=== PATIENT | female | born 1985 | race African-American/Black ===

== ENCOUNTER 2017-05-29 07:48 | Emergency (ER) | payer OTHER ==
--- NOTE | 2017-05-29 08:56 | RAD ---
TWO VIEWS CHEST: Date: 05-29-17 Comparison: 01-11-15 History: Cough, congestion, and sore throat. FINDINGS: There is minimal scoliotic curvature of the thoracic spine. There is no pneumothorax, pleural fluid, focal consolidation or alveolar edema. IMPRESSION: No acute findings. POS: [facility]
== END 2017-05-29 08:55 | disposition home or self-care (01) ==
LOC: ERS 07:48
DX: J40 Bronchitis, not specified as acute or chronic (principal); F17.210 Nicotine dependence, cigarettes, uncomplicated
CPT/HCPCS: 71020; 87081; 87430

== ENCOUNTER 2017-09-25 11:58 | Emergency (ER) | payer OTHER | END 2017-09-25 13:04 | disposition home or self-care (01) | LOC: ERS 11:58 | DX: K08.89 Other specified disorders of teeth and supporting structures (principal); F17.210 Nicotine dependence, cigarettes, uncomplicated | CPT/HCPCS: 99282 ==

== ENCOUNTER 2017-11-14 20:43 | Emergency (ER) | payer OTHER ==
[2017-11-14] MEDS ORDERED: Ketorolac Tromethamine 30 MG/ML VIAL ONE (21:35)
== END 2017-11-14 22:04 | disposition home or self-care (01) ==
LOC: ERS 20:43
DX: S02.5XXA Fracture of tooth (traumatic), initial encounter for closed fracture (principal); K02.9 Dental caries, unspecified; F17.210 Nicotine dependence, cigarettes, uncomplicated; X58.XXXA Exposure to other specified factors, initial encounter
CPT/HCPCS: 96372; J1885

== ENCOUNTER 2018-11-09 02:56 | Emergency (ER) | payer OTHER ==
[2018-11-09 03:31] LABS: #Basophils 0.1 thou/uL (0.0-0.2); #Eosinphils 0.1 thou/uL (0.0-0.7); #Monocytes 0.6 thou/uL (0.11-0.59); #Neutrophils 5.1 thou/uL (1.40-6.50); %Basophils 1.1 % (0.0-1.0); %Eosinophils 1.1 % (0.0-10.0); %Monocytes 6.1 % (0.0-10.0); %Neutrophils 51.6 % (42.0-75.0); Hemoglobin 12.8 g/dL (12.0-16.0); Mean Corpuscular HGB CONC 31.9 g/dL (32.0-36.0); Mean Corpuscular Hemoglobin 28.1 pg (27.0-31.0); Mean Corpuscular Volume 88.3 fL (78.0-98.0); Mean Platelet Volume 7.5 fL (7.4-10.4); Platelet Count 347 thou/uL (130-400); RBC Distribution Width 12.9 % (11.5-14.5); Red Blood Cell (RBC) Count 4.55 mill/uL (4.20-5.40); White Blood Cell (WBC) Count 9.9 thou/uL (4.8-10.8)
[2018-11-09 03:32] LABS: Bilirubin Negative (Negative); Blood, Urine Negative (Negative); Clarity CLEAR (Clear); Glucose, Urine (Dipstick) Negative (Negative); Leukocyte Negative (Negative); Nitrite Negative (Negative); Protein, Urine (Dipstick) Negative (Neg-Trace); Specific Gravity, Urine 1.004 (1.002-1.036); Urobilinogen 0.2 mg/dL (0.2-1.0)
[2018-11-09 03:33] LABS: Pregnancy Test - Urine (BHCG) Negative (Negative); Pregu Control Background? CLEAR/WHITE (CLR/WHITE); Pregu Control Bar Appear? YES (CONTROL BAR); Specific Gravity 1.004 (1.002-1.036)
[2018-11-09 03:43] LABS: Amphetamine Not Detected (NotDetected); Barbiturates Screen Not Detected (NotDetected); Benzodiazepine Screen Not Detected (NotDetected); Cocaine Metabolite Screen Not Detected (NotDetected); Medtox Control Line Valid? VALID (VALID); Medtox Reader # READER 4; Methadone Not Detected (NotDetected); Methamphetamine Not Detected (NotDetected); Opiate Screen Not Detected (NotDetected); Oxycodone Screen Not Detected (NotDetected); Phencyclidine (PCP) Not Detected (NotDetected); THC/Cannabinoid Screen Not Detected (NotDetected); Tricyclic Screen Not Detected (NotDetected)
[2018-11-09 03:50] LABS: ALT (SGPT) 55 U/L (8-55); AST (SGOT) 24 U/L (5-34); Albumin 3.9 g/dL (3.5-5.0); Alcohol 183 mg/dL (Less than 10); Alkaline Phosphatase 99 U/L (40-150); Anion Gap 15 mmol/L (10-20); BUN (Urea Nitrogen) 6 mg/dL (7.0-18.7); Bilirubin, Total 0.3 mg/dL (0.2-1.2); CK (CPK) 132 U/L (29-168); Calc. Creatinine Clearance 0 mL/min (70-130); Calcium 9.7 mg/dL (7.8-10.44); Carbon Dioxide 24 mmol/L (22-29); Chloride 106 mmol/L (98-107); Estimated GFR-MDRD 88; Glucose 173 mg/dL (70-105); Potassium 3.6 mmol/L (3.5-5.1); Protein, Total 7.9 g/dL (6.0-8.3); Salicylate Less than 8.0 mg/dL (15.0-30.0); Sodium 141 mmol/L (136-145)
[2018-11-09 06:17] LABS: Alcohol 128 mg/dL (Less than 10)
== END 2018-11-09 14:10 | disposition home or self-care (01) ==
LOC: ERS 02:56
DX: F32.9 Major depressive disorder, single episode, unspecified (principal); F10.129 Alcohol abuse with intoxication, unspecified; Y90.6 Blood alcohol level of 120-199 mg/100 ml; F17.210 Nicotine dependence, cigarettes, uncomplicated
CPT/HCPCS: 36415; 80053; 80306; 80307; 81003; 81025; 82550; 84443; 85025; 93005; 96360

== ENCOUNTER 2019-02-03 08:50 | Emergency (ER) | payer OTHER ==
[2019-02-03 09:43] LABS: Bilirubin Negative (Negative); Blood, Urine 2+ (Negative); Clarity Turbid (Clear); Glucose, Urine (Dipstick) Normal (Negative); Leukocyte 75 Leu/uL (Negative); Mucous/LPF Rare LPF (<2+); Nitrite Negative (Negative); Protein, Urine (Dipstick) 30 mg/dL (Neg-Trace); Squamous Epithelial 21-50 HPF (0-3)
[2019-02-03 09:45] LABS: Bacteria/HPF 1+ HPF (None Seen)
[2019-02-03 09:46] LABS: Pregnancy Test - Urine (BHCG) Negative (Negative); Pregu Control Background? CLEAR/WHITE (CLR/WHITE); Pregu Control Bar Appear? YES (CONTROL BAR); Specific Gravity 1.029 (1.002-1.036)
--- NOTE | 2019-02-03 11:01 | ULT ---
US Pelvic Transvag History: Pelvic pain Comparison: Pelvic ultrasound 2002 Findings: Real-time grayscale, color, and spectral analysis of the pelvis was performed transabdomina l and transvaginal approach. History a mass in the vaginal canal which is hypoechoic and heterogeneous. Uterus measures 9 x 5 x 5 cm. Left ovary measures 2.5 x 3 x 2.1 cm with adequate vascular flow. Right ovary measures 3.2 x 2.6 x 3 cm with a cyst. Flow unable to be obtained due to habitus. Impression: Vaginal canal heterogeneous mass/abscess. Direct visualization recommended.
[2019-02-03] MEDS ORDERED: Morphine 4 MG/ML VIAL ONE (11:05)
[2019-02-03] MEDS ORDERED: Ondansetron PF 4 MG/2 ML Vial ONE (11:05)
--- NOTE | 2019-02-03 12:46 | CT ---
EXAM: CT abdomen and pelvis with IV contrast PROVIDED CLINICAL HISTORY: Vaginal pain COMPARISON: None FINDINGS: The visualized lung bases are free of significant opacity. The solid abdominal organs demonstrate an unremarkable CT appearance. There is no bowel dilatation, inflammatory fat stranding, free fluid or free air apparent. There is n o evidence for appendicitis. 3.2 cm right adnexal cyst, nonspecific. Prominent by number but not pathologically enlarged bilateral inguinal lymph nodes. There is a 3.6 cm cystic mass associated with the left labial region, demonstrating peripheral contra st enhancement in a somewhat complex internal enhancement pattern remaining primarily fluid density internally. The regional major vascular structures appear unremarkable. The osseous structures demonstrate no con cerning lytic or blastic lesions. IMPRESSION: 1. Findings compatible with Bartholin's gland cyst on the left. Given the enhancement pattern, associ ated inflammation or infection should be considered. 2. Nonspecific 3.2 cm right adnexal cyst.
[2019-02-03] MEDS ORDERED: Azithromycin 250 MG TAB ONE (13:30)
[2019-02-03] MEDS ORDERED: cefTRIAXone\\ROCEPHIN 250 MG VIAL ONE (13:51)
[2019-02-03] MEDS ORDERED: Lidocaine 1% PF 5 ML VIAL ONE (13:51)
[2019-02-03] MEDS ORDERED: ISOVUE-370 76%-LOCM 1 ML ONE (16:27)
[2019-02-04 20:23] LABS: Chlamydia by PCR Not Detected (NotDetected); GC by PCR Not Detected (NotDetected)
== END 2019-02-03 14:19 | disposition home or self-care (01) ==
LOC: ERS 08:50
DX: N88.8 Other specified noninflammatory disorders of cervix uteri (principal); A59.01 Trichomonal vulvovaginitis; F17.210 Nicotine dependence, cigarettes, uncomplicated
CPT/HCPCS: 74177; 76856; 81003; 81015; 81025; 87480; 87491; 87510; 87591; 87660; 96372; 96374; 96375; J0696; J2001; J2270; J2405; Q9966

== ENCOUNTER 2019-04-08 09:09 | Emergency (ER) | payer OTHER ==
[2019-04-08 10:46] LABS: #Eosinphils 0.4 thou/uL (0.0-0.7); #Lymphocytes 3.2 thou/uL (1.20-3.40); #Monocytes 0.6 thou/uL (0.11-0.59); #Neutrophils 6.6 thou/uL (1.40-6.50); %Basophils 0.4 % (0.0-1.0); %Eosinophils 3.7 % (0.0-10.0); %Lymphocytes 29.3 % (21.0-51.0); %Monocytes 5.3 % (0.0-10.0); %Neutrophils 61.3 % (42.0-75.0); Hemoglobin 11.7 g/dL (12.0-16.0); Mean Corpuscular HGB CONC 33.1 g/dL (32.0-36.0); Mean Corpuscular Hemoglobin 28.5 pg (27.0-31.0); Mean Platelet Volume 7.6 fL (7.4-10.4); Platelet Count 328 thou/uL (130-400); RBC Distribution Width 12.9 % (11.5-14.5); Red Blood Cell (RBC) Count 4.12 mill/uL (4.20-5.40); White Blood Cell (WBC) Count 10.8 thou/uL (4.8-10.8)
[2019-04-08] MEDS ORDERED: Acetaminophen 500 MG TAB ONE (11:08)
[2019-04-08 11:21] LABS: Bilirubin Negative (Negative); Blood, Urine Negative (Negative); Clarity Clear (Clear); Glucose, Urine (Dipstick) Normal (Negative); Leukocyte Negative Leu/uL (Negative); Nitrite Negative (Negative); Protein, Urine (Dipstick) Negative (Neg-Trace); Urobilinogen Normal mg/dL (Less than 2)
[2019-04-10 00:03] LABS: Chlamydia by PCR Not Detected (NotDetected); GC by PCR Not Detected (NotDetected)
== END 2019-04-08 12:15 | disposition home or self-care (01) ==
LOC: ERS 09:09
DX: A59.01 Trichomonal vulvovaginitis (principal); F17.210 Nicotine dependence, cigarettes, uncomplicated
CPT/HCPCS: 36415; 36416; 81003; 85025; 87077; 87086; 87480; 87491; 87510; 87591; 87660; 99284

== ENCOUNTER 2019-08-06 18:48 | Emergency (ER) | payer OTHER ==
--- NOTE | 2019-08-06 20:40 | RAD ---
EXAM: Chest Two Views 08/06/2019 8:38 PM HISTORY: Cough and congestion COMPARISON: May 29, 2017 FINDINGS: Lungs: No acute airspace consolidation. Heart: Normal in size and contour. Pulmonary vessels: Normal. Costophrenic angles: Clear. Pneumothorax: None. Osseous structures:Intact. Additional findings: None. IMPRESSION: No significant acute intrathoracic disease.
== END 2019-08-06 22:40 | disposition home or self-care (01) ==
LOC: ERS 18:48
DX: J20.9 Acute bronchitis, unspecified (principal); F17.210 Nicotine dependence, cigarettes, uncomplicated
CPT/HCPCS: 71046; 94640; J7620

== ENCOUNTER 2020-06-28 02:02 | Inpatient (IN) | payer OTHER ==
[2020-06-28] MEDS ORDERED: Ketorolac Tromethamine 30 MG/ML VIAL ONE (02:26)
[2020-06-28 02:45] LABS: #Basophils 0.1 thou/uL (0.0-0.2); #Eosinphils 0.4 thou/uL (0.0-0.7); #Lymphocytes 3.9 thou/uL (1.20-3.40); #Monocytes 0.6 thou/uL (0.11-0.59); #Neutrophils 4.5 thou/uL (1.40-6.50); %Basophils 1.3 % (0.0-1.0); %Eosinophils 3.7 % (0.0-10.0); %Lymphocytes 41.3 % (21.0-51.0); %Neutrophils 47.6 % (42.0-75.0); Hemoglobin 13.1 g/dL (12.0-16.0); Mean Corpuscular HGB CONC 32.8 g/dL (32.0-36.0); Mean Corpuscular Volume 88.5 fL (78.0-98.0); Mean Platelet Volume 8.2 fL (7.4-10.4); Platelet Count 319 thou/uL (130-400); RBC Distribution Width 11.9 % (11.5-14.5); Red Blood Cell (RBC) Count 4.51 mill/uL (4.20-5.40); White Blood Cell (WBC) Count 9.5 thou/uL (4.8-10.8)
[2020-06-28 02:50] LABS: BHCG - Serum Negative (NEGATIVE); Pregs Control Background? CLEAR/WHITE (CLR/WHITE); Pregs Control Bar Appear? YES (CONTROL BAR)
[2020-06-28 03:06] LABS: ALT (SGPT) 36 U/L (8-55); AST (SGOT) 22 U/L (5-34); Albumin 3.8 g/dL (3.5-5.0); Alkaline Phosphatase 94 U/L (40-110); Anion Gap 18 mmol/L (10-20); BUN (Urea Nitrogen) 7 mg/dL (7.0-18.7); Bilirubin, Total 0.3 mg/dL (0.2-1.2); Calc. Creatinine Clearance 0 mL/min (70-130); Calcium 8.8 mg/dL (7.8-10.44); Carbon Dioxide 20 mmol/L (22-29); Chloride 100 mmol/L (98-107); Globulin 4.3 g/dL (2.4-3.5); Glucose 285 mg/dL (70-105); Protein, Total 8.1 g/dL (6.0-8.3); Sodium 134 mmol/L (136-145)
[2020-06-28] MEDS ORDERED: Morphine 4 MG/ML VIAL ONE (04:08)
[2020-06-28] MEDS ORDERED: Ondansetron PF 4 MG/2 ML Vial ONE (04:08)
[2020-06-28] MEDS ORDERED: Enoxaparin Sodium 80 MG/0.8 ML SYRINGE ONE (04:22)
[2020-06-28] MEDS ORDERED: Enoxaparin Sodium 40 MG/0.4 ML SYRINGE ONE (04:22)
--- NOTE | 2020-06-28 04:39 | PDOC.HHP ---
Hospitalist HPI - History of Present Illness Dyspnea, chest pain History of Present Illness: This is a 34-year-old male patient with a history of hypertension, obesity who presents with chest pain and dyspnea since she woke up a day ago. Pain in the central chest region with pleuritic and associated with dyspnea. No radiation and no apparent aggravating relieving factors. She does not know of any history of diabetes however she states she has hypertension however has not been treated. She is obese and also smokes 2 packs of cigarettes per day for the past 15 years. She notes having had similar type of chest pain couple of years ago however no diagnosis was made. With worsening pain she presented to the ED by EMS. At presentation her blood pressure is 135/95, pulse 107, respiratory rate 25, saturation 97 on room air. Labs showed sodium 134, glucose 285 CBC essentially within normal limits however D-dimer was markedly elevated at 11.86. Patient notes that she had not been exposed to anybody with Covid. Covid test is pending. CTA of the chest was limited limited in his ability to diagnose a PE however could rule out a large pulmonary embolism. The lungs were clear Given patient's vitals chest pain and history, concern still remain for PE or ACSwas started on Lovenox decision was made to admit for observation. Chest pain pain improved with morphine and Toradol Hospitalist team was consulted for admission. Hospitalist ROS - Review of Systems Constitutional: denies: fever, sweats, weakness Respiratory: reports: shortness of breath, SOB with excertion, pleuritic pain. denies: cough, hemoptysis Cardiovascular: reports: chest pain, palpitations. denies: orthopnea, paroxysmal noc. dyspnea, edema Gastrointestinal: denies: nausea, vomiting, abdominal pain, diarrhea Genitourinary: denies: dysuria, frequency, incontinence, hematuria Musculoskeletal: denies: neck pain, shoulder pain, arm pain, back pain, hand pain Neurological: denies: weakness, numbness, incoordination, change in speech Hospitalist Results - Labs Result Diagrams: 06/28/20 02:29 06/28/20 02:29 Lab results: WBC 9.5 thou/uL (4.8-10.8) 06/28/20 02: Hgb 13.1 g/dL (12.0-16.0) 06/28/20 02:29 Hct 39.9 % (36.0-47.0) 06/28/20 02:29 MCV 88.5 fL (78.0-98.0) 06/28/20 02:29 Plt Count 319 thou/uL (130-400) 06/28/20 02:29 Neutrophils % 47.6 % (42.0-75.0) 06/28/20 02:29 Sodium 134 mmol/L (136-145) L 06/28/20 02:29 Potassium 4.0 mmol/L (3.5-5.1) 06/28/20 02:29 Chloride 100 mmol/L (98-107) 06/28/20 02:29 Carbon Dioxide 20 mmol/L (22-29) L 06/28/20 02:29 BUN 7 mg/dL (7.0-18.7) 06/28/20 02:29 Creatinine 1.00 mg/dL (0.6-1.1) 06/28/20 02:29 Glucose 285 mg/dL (70-105) H 06/28/20 02:29 Calcium 8.8 mg/dL (7.8-10.44) 06/28/20 02:29 Total Bilirubin 0.3 mg/dL (0.2-1.2) 06/28/20 02:29 AST 22 U/L (5-34) 06/28/20 02:29 ALT 36 U/L (8-55) 06/28/20 02:29 Alkaline Phosphatase 94 U/L (40-110) 06/28/20 02:29 Troponin I 0.021 ng/mL (< 0.028) 06/28/20 02:29 Serum Total Protein 8.1 g/dL (6.0-8.3) 06/28/20 02:29 Albumin 3.8 g/dL (3.5-5.0) 06/28/20 02:29 Hospitalist H&P A/P - Plan Plan: This is a 34-year-old female patient with a history of obesity, tobacco abuse, hypertension who presents with a day history of worsening pleuritic chest pain. She is tachypneic and tachycardic with significantly elevated D-dimer concerning for PE however CTA has been inconclusive. Also possible DVT of ACS. She will be admitted for observation and cardiac/PE rule out. Chest pain Possibilities include PE, ACS given tachypnea and tachycardia. Patient is obese as [id number] smoking history and likely hypertensive. Troponin initial was in normal limitswe will trend CTA nonconclusive for PE however we will start her on Lovenox Consider VQ scan in a.m.may be able to do the perfusion aspect. Follow-up Covid test Consider cardiology evaluation. Elevated D-dimer Concerns for PE Covered on Lovenox for now Obesity Hyperglycemia Glucose elevated at 285 We will check A1c CODE STATUSfull code [place] prophylaxistherapeutic on Lovenox
[2020-06-28] MEDS ORDERED: Nitroglycerin 0.4 MG TAB (25 Tab Bottle) SL PRN (05:21)
[2020-06-28] MEDS ORDERED: Aspirin 325 MG TAB PO SCH (05:30)
[2020-06-28 06:04] LABS: Hemoglobin A1c 9.5 % (4.0-6.0)
[2020-06-28 06:05] LABS: Troponin I Less than 0.010 ng/mL (< 0.028)
--- NOTE | 2020-06-28 08:25 | CT ---
PRELIMINARY REPORT/[facility]/EMERGENCY AFTER HOURS PROCEDURE: EXAM: CTA Chest with Intravenous Contrast CLINICAL HISTORY: Patient is a 39 yo F who started having some left leg pain yesterday and woke up th is morning having trouble walking. She has not been able to walk all day and her left leg is sensitiv e to touch. TECHNIQUE: Axial CTA images of the chest with intravenous contrast. Three-dimensional MIP/volume rend ered reformations were performed. CONTRAST: With; 100ML ISOVUE 370 COMPARISON: None provided. FINDINGS: PULMONARY ARTERIES This examination is limited for evaluation of a PE due to the suboptimal enhanceme nt. There is no large PE. AORTA No thoracic aortic aneurysm or dissection. LUNGS The lungs are clear. No pulmonary mass. No focal airspace consolidation. PLEURAL SPACES No pleural effusion. No pneumothorax. HEART AND MEDIASTINUM No cardiomegaly. No significant pericardial effusion. LYMPH NODES No lymphadenopathy. BONES No focal osseous abnormality or acute fracture. CHEST WALL AND UPPER ABDOMEN Images through the upper abdomen are unremarkable. The chest wall is unr emarkable. IMPRESSION: This examination is limited for evaluation of a PE due to the suboptimal enhancement. The re is no large PE. ELECTRONICALLY SIGNED BY: Dylan Allison MD Jun 28, 2020 3:57:58 AM ADULT DAYCARE COORDINATOR FINAL REPORT CT ANGIO OF CHEST PERFORMED WITH INTRAVENOUS CONTRAST ENHANCEMENT WITH 3D RECONSTRUCTIONS: HISTORY: Left leg swelling, shortness of breath. Substernal chest pain. FINDINGS: There is some subsegmental atelectatic change in the lung bases. No infiltrative lung process. No d efinite significant mediastinal adenopathy. There are some subcarinal nodes located in the azygoesop hageal recess which are mildly prominent. Also some small prevascular nodes and small hilar nodes. Changes may be related to reactive nodes. Very nonspecific in appearance. Thoracic aorta is normal in caliber. There is poor pulmonary artery opacification. I see no large c entral pulmonary embolus. Visualized liver parenchyma shows no focal findings. IMPRESSION: 1. Very limited examination for evaluation of pulmonary embolus. I see no evidence of any large praveen tral pulmonary emboli. 2. Slightly prominent mediastinal and hilar lymph nodes, probably reactive in nature. 3. This report is in agreement with the temporary report issued by [facility]. POS: [facility]
--- NOTE | 2020-06-28 08:40 | RAD ---
PORTABLE CHEST: INDICATION: Chest pain. FINDINGS: No definite infiltrate. See accompanying CT chest for better characterization. IMPRESSION: No acute process identified. POS: [facility]
[2020-06-28 09:11] LABS: SARS-CoV-2 MS2 Positive; SARS-CoV-2 N Gene Negative; SARS-CoV-2 S Gene Negative; SARS-CoV-2 by NAA Not Detected (NotDetected); SARS-CoV-2 orf1ab Negative
[2020-06-28 09:41] LABS: Troponin I 0.014 ng/mL (< 0.028)
[2020-06-28] MEDS ORDERED: Acetaminophen 325 MG TAB PO PRN (09:42)
[2020-06-28] MEDS ORDERED: Ondansetron PF 4 MG/2 ML Vial IVP PRN (09:42)
[2020-06-28] MEDS ORDERED: Ondansetron ODT 4 MG TAB PO PRN (09:42)
--- NOTE | 2020-06-28 11:20 | NM ---
EXAM: NM Lung Perfusion Paticulate PROVIDED CLINICAL HISTORY: Chest pain COMPARISON: CT chest 06/28/2020 FINDINGS: 5.9 mCi technetium 99m labeled MAA was given intravenously. Perfusion images demonstrate normal, homo geneous distribution of radiopharmaceutical throughout both lungs, without evidence for a segmental peripheral wedge-shaped area of perfusion deficiency to suggest pulmonary embolus. IMPRESSION: No scintigraphic evidence for pulmonary embolus.
[2020-06-28] MEDS ORDERED: Iopamidol 370 76% 100 ML VIAL ONE (12:10)
[2020-06-28] MEDS ORDERED: Dextrose 50% Abboject 50 ML SYRINGE SLOW IVP PRN (14:01)
[2020-06-28] MEDS ORDERED: Dextrose 5% in Water 1,000 ML IV PRN (14:01)
[2020-06-28] MEDS ORDERED: HumaLOG 300 UNITS/3 ML VIAL SC PRN (14:01)
--- NOTE | 2020-06-28 14:26 | PDOC.HOSPP ---
- Subjective Encounter Date: 06/28/20 Encounter Time: 14:24 Subjective: Patient seen and examined. No new complaints. No overnight events. She still endorses right sided chest pain, unchanged since admission with mild dyspnea. Denies heart palpitations, light headedness, pain or swelling to lower extremities. We discussed results of VQ scan, CTA, DD and HA1C. Discussed newly diagnosed diabetes type II in detail. No further questions. - Objective Vital Signs & Weight: Weight Weight 263 lb 7.238 oz Result Diagrams: 06/28/20 02:29 06/28/20 02:29 Hospitalist ROS - Review of Systems Constitutional: denies: fever, chills Respiratory: reports: shortness of breath (mild). denies: cough, hemoptysis Cardiovascular: reports: chest pain (right sided, constant worse with deep inhalation). denies: palpitations, edema, light headedness Gastrointestinal: denies: nausea, vomiting, abdominal pain, diarrhea Genitourinary: denies: dysuria, hematuria All other systems reviewed; all pertinent +/- noted in HPI/Subj - Exam General Appearance: NAD, awake alert. negative: ill appearing General - other findings: uncomfortable Eye: anicteric sclera Heart: RRR, no murmur, no gallops, no rubs, normal peripheral pulses Respiratory: CTAB, no wheezes, no rales, no ronchi, normal chest expansion Gastrointestinal: soft, non-tender, normal bowel sounds, no rigidity Gastrointestinal - other findings: respiratory arrest with deep inhalation Extremities: no cyanosis, no edema Skin: no rashes Neurological: no focal deficits Psychiatric: normal affect, A&O x 3 Hosp A/P (1) Chest pain Code(s): R07.9 - CHEST PAIN, UNSPECIFIED Status: Acute (2) Pulmonary embolism Code(s): I26.99 - OTHER PULMONARY EMBOLISM WITHOUT ACUTE COR PULMONALE Status: Acute (3) Diabetes type 2, uncontrolled Code(s): E11.65 - TYPE 2 DIABETES MELLITUS WITH HYPERGLYCEMIA Status: Acute (4) Obesity Code(s): E66.9 - OBESITY, UNSPECIFIED Status: Acute - Plan 34/F with PMH HTN and obesity presents for dyspnea. The patient is admitted to telemetry floor, observation status. Expected length of stay less than 2 midnights. #Chest pain Constant, unable to reproduce on examination. Troponins x3 flat, does not follow physiologic pattern ACS. Continue full dose aspirin. We will check fasting lipid profile in a.m. #Pulmonary embolism Suspected. CTA chest very limited exam, no evidence of large central pulmonary emboli. Nuc med lung perfusion scan no evidence of pulmonary embolism. Order venous Doppler. Continue Lovenox 100 mg twice daily. Add morphine for analgesia. If venous Doppler negative, will consult pulmonology in a.m. #Diabetes type 2 uncontrolled Newly diagnosed. Hemoglobin A1c 9.5. Extensive education. Consult dietary. Add mild ISS. Accu-Cheks AC at bedtime. #Obesity, morbid BMI 42.5. Dietary consulted. Continue Lovenox for DVT prophylaxis. No GI prophylaxis. CODE STATUS is full code. Discussed this case with Dr. Cartagena, attending physician.
[2020-06-28] MEDS ORDERED: Morphine 4 MG/ML VIAL SLOW IVP PRN (14:53)
[2020-06-28] MEDS ORDERED: Enoxaparin Sodium 100 MG/ML SYRINGE ONE (16:08)
[2020-06-28] MEDS ORDERED: Aspirin 325 MG TAB ONE (16:08)
[2020-06-28] MEDS ORDERED: Nitroglycerin 0.4 MG TAB 1 EACH ONE (16:08)
[2020-06-28] MEDS: Enoxaparin Sodium 100 MG/ML SYRINGE SC SCH (16:49)
--- NOTE | 2020-06-28 17:01 | ULT ---
Venous duplex sonogram bilateral lower extremity HISTORY: Bilateral leg pain and edema. FINDINGS: Each common femoral vein and greater saphenous junction were evaluated along with each femo ral, deep femoral, popliteal, and posterior tibial vein. There is good color and spectral Doppler flow, compression, and augmentation. IMPRESSION : Normal exam.
[2020-06-28] MEDS ORDERED: HumaLOG 300 UNITS/3 ML VIAL ONE (18:24)
[2020-06-28] MEDS: HumaLOG 300 UNITS/3 ML VIAL SC PRN (18:28)
[2020-06-28] MEDS ORDERED: Enoxaparin Sodium 40 MG/0.4 ML SYRINGE SC SCH (21:00)
[2020-06-28 21:50] VITALS: BMI 43.8
[2020-06-29 04:01] LABS: #Basophils 0.1 thou/uL (0.0-0.2); #Eosinphils 0.2 thou/uL (0.0-0.7); #Monocytes 0.5 thou/uL (0.11-0.59); #Neutrophils 3.6 thou/uL (1.40-6.50); %Basophils 1.2 % (0.0-1.0); %Eosinophils 2.9 % (0.0-10.0); %Lymphocytes 47.3 % (21.0-51.0); %Monocytes 6.1 % (0.0-10.0); %Neutrophils 42.5 % (42.0-75.0); Mean Corpuscular Hemoglobin 28.2 pg (27.0-31.0); Mean Corpuscular Volume 88.2 fL (78.0-98.0); Mean Platelet Volume 7.9 fL (7.4-10.4); Platelet Count 281 thou/uL (130-400); RBC Distribution Width 11.9 % (11.5-14.5); Red Blood Cell (RBC) Count 4.26 mill/uL (4.20-5.40); White Blood Cell (WBC) Count 8.3 thou/uL (4.8-10.8)
[2020-06-29 04:18] LABS: Anion Gap 12 mmol/L (10-20); BUN (Urea Nitrogen) 8 mg/dL (7.0-18.7); Calc. Creatinine Clearance 202 mL/min (70-130); Calcium 8.6 mg/dL (7.8-10.44); Carbon Dioxide 25 mmol/L (22-29); Cardiac Risk 4.1 (Less than 4.5); Chloride 102 mmol/L (98-107); Cholesterol 107 mg/dl (< 200 Desired); Glucose 168 mg/dL (70-105); HDL Cholesterol 26 mg/dL (>60 Neg Risk); LDL Cholesterol, Calculated 49 mg/dL; Sodium 135 mmol/L (136-145); Triglycerides 159 mg/dL (Less than 150)
[2020-06-29] MEDS: Enoxaparin Sodium 100 MG/ML SYRINGE SC SCH (04:22)
[2020-06-29 07:51] VITALS: TEMP 98.4
[2020-06-29] MEDS ORDERED: Aspirin 325 mg Enteric Coated Tablet PO SCH (09:00)
[2020-06-29] MEDS ORDERED: FLU VACC QS2020-21(6MOS UP)/PF 60 MCG/0.5 ML SYRINGE IM ONE (09:00)
[2020-06-29 11:17] VITALS: BP 131/75
[2020-06-29] MEDS: HumaLOG 300 UNITS/3 ML VIAL SC PRN (11:19)
--- NOTE | 2020-06-29 12:24 | CON ---
DATE OF CONSULTATION: HISTORY OF PRESENT ILLNESS: Sparkle Montes is a 34-year-old morbidly obese female who came to the hospital on June 28 with vague chest pain without associated shortness of breath, fever or chills lasting 24 hours. She smokes a pack a day. Denies any prior history of TB or bronchial asthma. No leg pain. No leg swelling. Her saturations in the ER were 98% on room air, respiratory rate 18, blood pressure was elevated 150/114, pulse 126. She since had a CT chest, a V/Q scan and ultrasound of the leg. All were negative for any clots or PE. PAST MEDICAL HISTORY: Uncontrolled hypertension. PREVIOUS SURGERIES: . CHRONIC MEDICATION: None. ALLERGIES: NONE. PRIMARY CARE PHYSICIAN: None. REVIEW OF SYSTEMS: Otherwise 10 point negative. PHYSICAL EXAMINATION: VITAL SIGNS: Temperature 98, pulse 84, saturations 97% on room air, blood pressure 130/82. CHEST: No wheezing, no crackles. CARDIAC: Normal S1, S2. No gallops. ABDOMEN: Soft without masses. No edema. IMAGING: Chest x-ray was normal. CT angio, no clots were seen. V/Q scan clearly normal. Ultrasound of leg was negative. Echocardiogram was normal. IMPRESSION: 1. Chest pain, etiology unclear. 2. Morbid obesity with uncontrolled hypertension. PLAN: She needs to lose weight. She may benefit from outpatient sleep study if she was to desire so. She had no evidence of pulmonary emboli or DVT. Discontinue full-dose anticoagulation. Ambulation. Hopefully, she can be discharged home in the next day or so. Job ID: [id number]
--- NOTE | 2020-06-29 22:15 | PDOC.DS.DS ---
Provider - Provider Date of Admission: 06/28/20 04:16 Date of Discharge: 06/29/20 Admitting Provider: Gab Jaffe MD Consultations: Pulmonary Primary Care Physician: [facility] Course - Hospital Course Hospital Course: Patient is a 24-year-old female with hypertension, obesity and ongoing tobacco dependence presented to the hospital with right-sided chest pain that is worse with movement and deep breathing. Please refer to the history and physical for further details. The patient was admitted to the hospital with a diagnosis of suspected pulmonary embolism. A d-dimer was 11.86. CT angiogram of the chest was limited for jory luation of pulmonary embolism due to suboptimal enhancement. There was no large pulmonary embolism. Lung perfusion scan was negative for evidence of pulmonary embolism. Bilateral lower extremity Doppler was negative for DVT. Echocardiogram showed ejection fraction of 55-60 percent with mild mitral regurgitation and mild tricuspid regurgitation. Patient was evaluated by pulmonary Dr. Britton. Dr. Britton does not think that patient has pulmonary embolism. A chest pain is probably musculoskeletal. Due to her risk factors she would require further testing to rule out cardiac disease. Lovenox has been discontinued. Patient will be discharged home with outpatient follow-up with cardiology. The chest pain as significantly improved at this time. Patient was also found to have new diagnosis of diabetes mellitus type II with A1c of 9.5. She was counseled by the dietitian on lifestyle modification. Metformin has been started. Side effects of Metformin has been discussed with the patient. Final diagnosis: Right-sided pleuritic chest pain of unclear etiologypulmonary embolism unlikely New diagnosis of diabetes mellitus type II Obesity with a BMI 43.9 Ongoing tobacco abuse Hyponatremia Resuscitation Status: 06/28/20 04:53 Resuscitation Status Routine Resuscitation Status: FULL: Full Resuscitation - Labs Lab Results: 06/29/20 03:37 06/29/20 03:37 Abnormal Lab Results - Last 48 hrs 06/28/20 02:29: Sodium 134 L, Carbon Dioxide 20 L, Globulin 4.3 H, Albumin/Globulin Ratio 0.9 L 06/28/20 02:29: Basophils % 1.3 H, Lymphocytes # 3.9 H, Monocytes # 0.6 H 06/28/20 02:29: D-Dimer 11.86 H 06/28/20 05:34: Hemoglobin A1c 9.5 H 06/29/20 03:37: Sodium 135 L, Triglycerides 159 H 06/29/20 03:37: Basophils % 1.2 H, Lymphocytes # 4.0 H - Physical Exam Vitals: Vital Signs (12 hours) Temp Pulse Resp BP Pulse Ox 06/29/20 11:12 98.4 F 82 19 131/75 98 Weight Weight 271 lb 12.8 oz Physical Exam: The patient was seen and examined on the day of discharge. Plan - Discharge Medications Prescriptions: metFORMIN HCl 500 mg PO BID-WM #60 tab Home Medications: Medication Instructions Recorded Confirmed Type metFORMIN HCl 500 mg PO BID-WM #60 tab 06/29/20 Rx Allergies: No Known Allergies Allergy (Verified 06/29/20 04:02) - Discharge Instructions Discharge Instructions:: Start Metformin on 06/30 - Follow up Plan Referrals: [facility] [MD Not on Staff] - 3 Days (Follow up with your primary care provider within 1 week. ) Shahzad Salgado MD [Active] - 2-3 Weeks (Please call and schedule a follow up appointment with your test and balance engineer. ) Disposition: HOME Quality - Care Measures CORE MEASURES:: N/A
== END 2020-06-29 14:16 | disposition home or self-care (01) | DRG 313 ==
LOC: ERS 02:02 → ERHOLD 04:16 → OBSVTOIN 04:16 → 2NO 20:57
PROVIDERS: ADMIT Student in an Organized Health Care Education/Training Program; ATTEND Internal Medicine
DX: R07.89 Other chest pain (principal); Z68.41 Body mass index [BMI] 40.0-44.9, adult; Z23 Encounter for immunization; Z20.822 Contact with and (suspected) exposure to COVID-19; E11.9 Type 2 diabetes mellitus without complications; I10 Essential (primary) hypertension; I08.1 Rheumatic disorders of both mitral and tricuspid valves; F17.210 Nicotine dependence, cigarettes, uncomplicated; E66.01 Morbid (severe) obesity due to excess calories
CPT/HCPCS: 36415; 36416; 71045; 71275; 78451; 80048; 80053; 80061; 83036; 84484; 84703; 85025; 85379; 87635; 90471; 90662; 93005; 93306; 93970; 96372; 96374; 96375; A9540; G0008; G0378; J1650; J1885; J2270; J2405; Q9967; U0003

== ENCOUNTER 2020-07-26 01:25 | Emergency (ER) | payer OTHER ==
[2020-07-26 02:09] LABS: #Basophils 0.1 thou/uL (0.0-0.2); #Eosinphils 0.3 thou/uL (0.0-0.7); #Lymphocytes 4.7 thou/uL (1.20-3.40); #Monocytes 0.5 thou/uL (0.11-0.59); #Neutrophils 4.2 thou/uL (1.40-6.50); %Basophils 1.3 % (0.0-1.0); %Eosinophils 2.7 % (0.0-10.0); %Lymphocytes 47.7 % (21.0-51.0); %Monocytes 5.2 % (0.0-10.0); %Neutrophils 43.1 % (42.0-75.0); Hemoglobin 13.3 g/dL (12.0-16.0); Mean Corpuscular HGB CONC 32.4 g/dL (32.0-36.0); Mean Corpuscular Hemoglobin 28.3 pg (27.0-31.0); Mean Corpuscular Volume 87.3 fL (78.0-98.0); Mean Platelet Volume 7.8 fL (7.4-10.4); Platelet Count 381 thou/uL (130-400); RBC Distribution Width 11.9 % (11.5-14.5); Red Blood Cell (RBC) Count 4.69 mill/uL (4.20-5.40); White Blood Cell (WBC) Count 9.8 thou/uL (4.8-10.8)
[2020-07-26 02:14] LABS: ALT (SGPT) 49 U/L (8-55); AST (SGOT) 19 U/L (5-34); Albumin 4.1 g/dL (3.5-5.0); Alkaline Phosphatase 109 U/L (40-110); Anion Gap 16 mmol/L (10-20); BUN (Urea Nitrogen) 10 mg/dL (7.0-18.7); Bilirubin, Total 0.3 mg/dL (0.2-1.2); Calc. Creatinine Clearance 0 mL/min (70-130); Calcium 9.2 mg/dL (7.8-10.44); Carbon Dioxide 23 mmol/L (22-29); Chloride 104 mmol/L (98-107); Globulin 3.9 g/dL (2.4-3.5); Glucose 379 mg/dL (70-105); Potassium 4.3 mmol/L (3.5-5.1); Sodium 139 mmol/L (136-145)
[2020-07-26] MEDS ORDERED: Ketorolac Tromethamine 30 MG/ML VIAL ONE (02:20)
--- NOTE | 2020-07-26 07:46 | RAD ---
XR Chest 1 View Portable HISTORY: Chest pain COMPARISON: 06/28/2020 FINDINGS: The heart size is normal. The lungs are well expanded without focal areas of consolidation, pneumothorax or pleural effusions. IMPRESSION: No radiographic evidence of acute cardiopulmonary process.
== END 2020-07-26 03:25 | disposition home or self-care (01) ==
LOC: ERS 01:25
DX: R07.89 Other chest pain (principal); F17.210 Nicotine dependence, cigarettes, uncomplicated; I10 Essential (primary) hypertension
CPT/HCPCS: 36415; 71045; 80053; 84484; 85025; 85379; 93005; 96374; J1885

== ENCOUNTER 2020-12-19 03:39 | Emergency (ER) | payer OTHER ==
[2020-12-19 05:08] LABS: #Eosinphils 0.1 thou/uL (0.0-0.7); #Lymphocytes 2.9 thou/uL (1.20-3.40); #Monocytes 0.3 thou/uL (0.11-0.59); #Neutrophils 5.2 thou/uL (1.40-6.50); %Basophils 0.6 % (0.0-1.0); %Eosinophils 0.9 % (0.0-10.0); %Monocytes 3.4 % (0.0-10.0); %Neutrophils 61.1 % (42.0-75.0); Hemoglobin 11.6 g/dL (12.0-16.0); Mean Corpuscular HGB CONC 31.7 g/dL (32.0-36.0); Mean Corpuscular Hemoglobin 28.1 pg (27.0-31.0); Mean Corpuscular Volume 88.7 fL (78.0-98.0); Mean Platelet Volume 7.7 fL (7.4-10.4); Platelet Count 336 thou/uL (130-400); RBC Distribution Width 12.7 % (11.5-14.5); Red Blood Cell (RBC) Count 4.12 mill/uL (4.20-5.40); White Blood Cell (WBC) Count 8.4 thou/uL (4.8-10.8)
[2020-12-19 05:15] LABS: BHCG - Serum Negative (NEGATIVE); Pregs Control Background? CLEAR/WHITE (CLR/WHITE); Pregs Control Bar Appear? YES (CONTROL BAR)
[2020-12-19 05:29] LABS: ALT (SGPT) 40 U/L (8-55); AST (SGOT) 21 U/L (5-34); Albumin 3.6 g/dL (3.5-5.0); Alkaline Phosphatase 89 U/L (40-110); Anion Gap 16 mmol/L (10-20); BUN (Urea Nitrogen) 6 mg/dL (7.0-18.7); Bilirubin, Total 0.2 mg/dL (0.2-1.2); Calc. Creatinine Clearance 0 mL/min (70-130); Calcium 8.5 mg/dL (7.8-10.44); Carbon Dioxide 20 mmol/L (22-29); Chloride 105 mmol/L (98-107); Globulin 3.6 g/dL (2.4-3.5); Glucose 211 mg/dL (70-105); Potassium 3.5 mmol/L (3.5-5.1); Protein, Total 7.2 g/dL (6.0-8.3); Sodium 137 mmol/L (136-145)
[2020-12-19 08:36] LABS: Troponin I Less than 0.010 ng/mL (< 0.028)
== END 2020-12-19 09:00 | disposition home or self-care (01) ==
LOC: ERS 03:39
DX: R07.9 Chest pain, unspecified (principal); I10 Essential (primary) hypertension; E11.9 Type 2 diabetes mellitus without complications; F17.210 Nicotine dependence, cigarettes, uncomplicated
CPT/HCPCS: 36415; 71045; 80053; 84484; 84703; 85025; 93005

== ENCOUNTER 2021-01-28 00:46 | Emergency (ER) | payer OTHER ==
[2021-01-28] MEDS ORDERED: Ketorolac Tromethamine 30 MG/ML VIAL ONE (01:08)
[2021-01-28] MEDS ORDERED: Lorazepam 2 MG/ML VIAL ONE (01:08)
[2021-01-28 01:36] LABS: #Basophils 0.1 thou/uL (0.0-0.2); #Eosinphils 0.2 thou/uL (0.0-0.7); #Lymphocytes 4.1 thou/uL (1.20-3.40); #Monocytes 0.6 thou/uL (0.11-0.59); %Basophils 0.5 % (0.0-1.0); %Eosinophils 1.5 % (0.0-10.0); %Lymphocytes 37.7 % (21.0-51.0); %Monocytes 5.3 % (0.0-10.0); Hemoglobin 12.9 g/dL (12.0-16.0); Mean Corpuscular Hemoglobin 29.4 pg (27.0-31.0); Mean Corpuscular Volume 89.1 fL (78.0-98.0); Mean Platelet Volume 7.9 fL (7.4-10.4); Platelet Count 358 thou/uL (130-400); RBC Distribution Width 12.7 % (11.5-14.5); Red Blood Cell (RBC) Count 4.38 mill/uL (4.20-5.40); White Blood Cell (WBC) Count 10.8 thou/uL (4.8-10.8)
[2021-01-28 01:55] LABS: ALT (SGPT) 33 U/L (8-55); AST (SGOT) 18 U/L (5-34); Albumin 3.8 g/dL (3.5-5.0); Alkaline Phosphatase 90 U/L (40-110); Anion Gap 10 mmol/L (10-20); BUN (Urea Nitrogen) 4 mg/dL (7.0-18.7); Bilirubin, Total 0.4 mg/dL (0.2-1.2); Calc. Creatinine Clearance 0 mL/min (70-130); Carbon Dioxide 25 mmol/L (22-29); Chloride 102 mmol/L (98-107); Globulin 3.8 g/dL (2.4-3.5); Glucose 204 mg/dL (70-105); Protein, Total 7.6 g/dL (6.0-8.3); Sodium 134 mmol/L (136-145)
== END 2021-01-28 02:30 | disposition home or self-care (01) ==
LOC: ERS 00:46
DX: R07.2 Precordial pain (principal); I10 Essential (primary) hypertension; E11.9 Type 2 diabetes mellitus without complications; F17.210 Nicotine dependence, cigarettes, uncomplicated
CPT/HCPCS: 36415; 71046; 80053; 84484; 85025; 85379; 93005; 96374; 96375; J1885; J2060

== ENCOUNTER 2021-05-17 22:03 | Emergency (ER) | payer OTHER ==
[2021-05-17 22:40] LABS: #Basophils 0.1 thou/uL (0.0-0.2); #Eosinphils 0.1 thou/uL (0.0-0.7); #Lymphocytes 3.9 thou/uL (1.20-3.40); #Monocytes 0.5 thou/uL (0.11-0.59); #Neutrophils 5.4 thou/uL (1.40-6.50); %Eosinophils 0.9 % (0.0-10.0); %Monocytes 4.7 % (0.0-10.0); %Neutrophils 54.3 % (42.0-75.0); Hemoglobin 13.4 g/dL (12.0-16.0); Mean Corpuscular HGB CONC 33.4 g/dL (32.0-36.0); Mean Corpuscular Hemoglobin 30.1 pg (27.0-31.0); Mean Corpuscular Volume 90.1 fL (78.0-98.0); Mean Platelet Volume 7.3 fL (7.4-10.4); Platelet Count 329 thou/uL (130-400); RBC Distribution Width 12.4 % (11.5-14.5); Red Blood Cell (RBC) Count 4.45 mill/uL (4.20-5.40); White Blood Cell (WBC) Count 9.9 thou/uL (4.8-10.8)
[2021-05-17 23:01] LABS: ALT (SGPT) 35 U/L (8-55); AST (SGOT) 21 U/L (5-34); Albumin 4.2 g/dL (3.5-5.0); Alkaline Phosphatase 104 U/L (40-110); Anion Gap 13 mmol/L (10-20); BUN (Urea Nitrogen) 9 mg/dL (7.0-18.7); Bilirubin, Total 0.5 mg/dL (0.2-1.2); Calc. Creatinine Clearance 0 mL/min (70-130); Calcium 9.8 mg/dL (7.8-10.44); Carbon Dioxide 26 mmol/L (22-29); Chloride 102 mmol/L (98-107); Glucose 174 mg/dL (70-105); Potassium 4.1 mmol/L (3.5-5.1); Protein, Total 8.2 g/dL (6.0-8.3); Sodium 137 mmol/L (136-145)
[2021-05-17] MEDS ORDERED: Aspirin Chewable 81 MG TAB ONE (23:40)
== END 2021-05-17 23:45 | disposition home or self-care (01) ==
LOC: ERS 22:03
DX: R07.9 Chest pain, unspecified (principal); I10 Essential (primary) hypertension; E11.9 Type 2 diabetes mellitus without complications; F17.210 Nicotine dependence, cigarettes, uncomplicated
CPT/HCPCS: 36416; 71045; 80053; 84484; 85025; 93005

== ENCOUNTER 2022-01-06 22:19 | Emergency (ER) | payer OTHER ==
[2022-01-07] MEDS ORDERED: Acetaminophen 500 MG TAB ONE (00:01)
[2022-01-07 00:25] LABS: Acetaminophen Less than 10.0 mcg/mL (10.0-30.0); Alcohol 86 mg/dL (Less than 10); Salicylate Less than 8.0 mg/dL (15.0-30.0)
== END 2022-01-07 02:24 | disposition home or self-care (01) ==
LOC: ERS 22:19
DX: S92.344A Nondisplaced fracture of fourth metatarsal bone, right foot, initial encounter for closed fracture (principal); S92.354A Nondisplaced fracture of fifth metatarsal bone, right foot, initial encounter for closed fracture; S01.512A Laceration without foreign body of oral cavity, initial encounter; I10 Essential (primary) hypertension; E11.9 Type 2 diabetes mellitus without complications; F17.210 Nicotine dependence, cigarettes, uncomplicated; Y04.8XXA Assault by other bodily force, initial encounter
CPT/HCPCS: 36415; 70450; 70486; 72125; 80307

== ENCOUNTER 2022-02-27 22:09 | Emergency (ER) | payer OTHER | END 2022-02-28 01:22 | disposition home or self-care (01) | LOC: ERS 22:09 | DX: S93.491A Sprain of other ligament of right ankle, initial encounter (principal); E11.9 Type 2 diabetes mellitus without complications; I10 Essential (primary) hypertension; Z87.891 Personal history of nicotine dependence; Z79.84 Long term (current) use of oral hypoglycemic drugs; X58.XXXA Exposure to other specified factors, initial encounter | CPT/HCPCS: 36416; 99283 ==

== ENCOUNTER 2022-06-04 04:26 | Emergency (ER) | payer OTHER ==
[2022-06-04] MEDS ORDERED: Ibuprofen 200 MG TAB ONE (05:32)
[2022-06-04 06:43] LABS: SARS-CoV-2 NAA Rapid Test Not Detected (NotDetected)
== END 2022-06-04 06:14 | disposition home or self-care (01) ==
LOC: ERS 04:26
DX: B34.9 Viral infection, unspecified (principal); I10 Essential (primary) hypertension; E11.9 Type 2 diabetes mellitus without complications; F17.210 Nicotine dependence, cigarettes, uncomplicated; Z20.822 Contact with and (suspected) exposure to COVID-19
CPT/HCPCS: 36416; 99283

== ENCOUNTER 2022-07-04 22:42 | Emergency (ER) | payer OTHER | END 2022-07-05 01:35 | disposition home or self-care (01) | LOC: ERS 22:42 | DX: B34.9 Viral infection, unspecified (principal); J45.909 Unspecified asthma, uncomplicated; I10 Essential (primary) hypertension; E11.9 Type 2 diabetes mellitus without complications | CPT/HCPCS: 71046 ==

== ENCOUNTER 2022-08-19 01:50 | Emergency (ER) | payer OTHER ==
[2022-08-19 02:27] LABS: Bilirubin Negative (Negative); Blood, Urine Negative (Negative); Clarity Clear (Clear); Glucose, Urine (Dipstick) Normal (Negative); Ketone, Urine Negative (Negative); Leukocyte Negative Leu/uL (Negative); Nitrite Negative (Negative); Protein, Urine (Dipstick) Negative (Neg-Trace); Specific Gravity, Urine 1.002 (1.002-1.036); Urobilinogen Normal mg/dL (Less than 2)
[2022-08-19 02:30] LABS: Pregnancy Test - Urine (BHCG) Negative (Negative); Specific Gravity 1.002 (1.002-1.036)
[2022-08-19 02:31] LABS: Pregu Control Background? CLEAR/WHITE (CLR/WHITE); Pregu Control Bar Appear? YES (CONTROL BAR)
[2022-08-19] MEDS ORDERED: Ketorolac Tromethamine 30 MG/ML VIAL ONE (02:42)
[2022-08-19] MEDS ORDERED: Ondansetron PF 4 MG/2 ML Vial ONE (02:42)
[2022-08-19 03:21] LABS: #Basophils 0.1 thou/uL (0.0-0.2); #Eosinphils 0.3 thou/uL (0.0-0.7); #Lymphocytes 3.3 thou/uL (1.20-3.40); #Monocytes 0.5 thou/uL (0.11-0.59); #Neutrophils 4.9 thou/uL (1.40-6.50); %Basophils 0.8 % (0.0-1.0); %Lymphocytes 36.5 % (21.0-51.0); %Monocytes 5.9 % (0.0-10.0); %Neutrophils 53.8 % (42.0-75.0); Hemoglobin 12.2 g/dL (12.0-16.0); Mean Corpuscular HGB CONC 32.5 g/dL (32.0-36.0); Mean Corpuscular Hemoglobin 28.8 pg (27.0-31.0); Mean Corpuscular Volume 88.8 fl (78.0-98.0); Mean Platelet Volume 7.7 fL (7.4-10.4); Platelet Count 314 10x3/uL (130-400); RBC Distribution Width 13.1 % (11.5-14.5); Red Blood Cell (RBC) Count 4.24 mill/uL (4.20-5.40); White Blood Cell (WBC) Count 9.1 10x3/uL (4.8-10.8)
[2022-08-19 03:47] LABS: ALT (SGPT) 22 U/L (8-55); AST (SGOT) 16 U/L (5-34); Albumin 3.7 g/dL (3.5-5.0); Alkaline Phosphatase 79 U/L (40-110); Anion Gap 13 mmol/L (10-20); BUN (Urea Nitrogen) 8 mg/dL (7.0-18.7); Bilirubin, Total 0.3 mg/dL (0.2-1.2); Calc. Creatinine Clearance 0 mL/min (70-130); Carbon Dioxide 23 mmol/L (22-29); Chloride 104 mmol/L (98-107); Estimated GFR 100; Globulin 3.7 g/dL (2.4-3.5); Glucose 132 mg/dL (70-105); Lipase 9 U/L (8-78); Potassium 3.4 mmol/L (3.5-5.1); Protein, Total 7.4 g/dL (6.0-8.3); Sodium 137 mmol/L (136-145)
== END 2022-08-19 05:21 | disposition home or self-care (01) ==
LOC: ERS 01:50
DX: R10.11 Right upper quadrant pain (principal); M79.671 Pain in right foot; I10 Essential (primary) hypertension; E11.9 Type 2 diabetes mellitus without complications
CPT/HCPCS: 36415; 74176; 76705; 80053; 81003; 81025; 83690; 85025; 96374; 96375; 96376; J1885; J2405

== ENCOUNTER 2022-08-31 02:51 | Emergency (ER) | payer OTHER ==
[2022-08-31] MEDS ORDERED: Ketorolac Tromethamine 30 MG/ML VIAL ONE (03:07)
[2022-08-31] MEDS ORDERED: Morphine 4 MG/ML VIAL ONE (04:19)
== END 2022-08-31 04:42 | disposition home or self-care (01) ==
LOC: ERS 02:51
DX: M54.12 Radiculopathy, cervical region (principal); I10 Essential (primary) hypertension; E11.9 Type 2 diabetes mellitus without complications; F17.210 Nicotine dependence, cigarettes, uncomplicated
CPT/HCPCS: 36416; 96372; 99283; J1885; J2270

== ENCOUNTER 2023-06-03 11:23 | Emergency (ER) | payer OTHER | END 2023-06-03 12:27 | disposition home or self-care (01) | LOC: ERS 11:23 | DX: J06.9 Acute upper respiratory infection, unspecified (principal); K04.7 Periapical abscess without sinus; D17.9 Benign lipomatous neoplasm, unspecified; I10 Essential (primary) hypertension; E11.9 Type 2 diabetes mellitus without complications; F17.210 Nicotine dependence, cigarettes, uncomplicated | CPT/HCPCS: 99283 ==

== ENCOUNTER 2023-07-20 00:18 | Emergency (ER) | payer OTHER ==
[2023-07-20] MEDS ORDERED: Metoclopramide HCl 10 MG (2 mL) VIAL ONE (00:37)
[2023-07-20] MEDS ORDERED: Famotidine/PF 20 mg/2ml Vial ONE (00:38)
[2023-07-20 02:03] LABS: Bacteria/HPF None Seen HPF (None Seen); Bilirubin Negative (Negative); Blood, Urine Negative (Negative); CAUTI Indications for Culture < 2yrs of age; Clarity Clear (Clear); Glucose, Urine (Dipstick) Normal (Negative); Ketone, Urine Negative (Negative); Leukocyte Negative Leu/uL (Negative); Nitrite Negative (Negative); Protein, Urine (Dipstick) Negative (Neg-Trace); RBC/HPF 0-3 HPF (0-3); Specific Gravity, Urine 1.005 (1.002-1.036); Squamous Epithelial 0-3 HPF (0-3); Urobilinogen Normal mg/dL (Less than 2); WBC/HPF 0-3 HPF (0-3); pH, Urine 5.5 (5.0-9.0)
[2023-07-20 02:06] LABS: Urine Culture Reflex Yes Yes
== END 2023-07-20 02:15 | disposition home or self-care (01) ==
LOC: ERS 00:18
DX: R11.2 Nausea with vomiting, unspecified (principal); F10.129 Alcohol abuse with intoxication, unspecified; I10 Essential (primary) hypertension; E11.9 Type 2 diabetes mellitus without complications; F17.210 Nicotine dependence, cigarettes, uncomplicated
CPT/HCPCS: 81001; 96374; 96375; J2765; S0028

== ENCOUNTER 2025-05-25 10:18 | Emergency (ER) | payer MEDICAID, OTHER ==
[2025-05-25] MEDS ORDERED: Lidocaine 1% PF 5 ML VIAL ONE (11:30)
[2025-05-25] MEDS ORDERED: Lidocaine 1% (PF) 30 ML VIAL ONE (12:53)
== END 2025-05-25 14:43 | disposition home or self-care (01) ==
LOC: ERS 10:18
DX: N76.4 Abscess of vulva (principal); E11.9 Type 2 diabetes mellitus without complications; I10 Essential (primary) hypertension; F17.210 Nicotine dependence, cigarettes, uncomplicated
CPT/HCPCS: 56405; 96372; J2003; J3010

== ENCOUNTER 2025-06-04 22:26 | Emergency (ER) | payer MEDICAID ==
[2025-06-04 23:24] LABS: #Basophils 0.05 10x3/uL (0.0-0.2); #Eosinophils 0.06 10x3/uL (0.0-0.7); #Monocytes 0.46 10x3/uL (0.11-0.59); #Neutrophils 5.91 10x3/uL (1.40-6.50); %Basophils 0.5 % (0.0-1.0); %Eosinophils 0.6 % (0.0-10.0); %Lymphocytes 37.7 % (21.0-51.0); %Monocytes 4.4 % (0.0-10.0); %Neutrophils 56.2 % (42.0-75.0); Hematocrit 38.5 % (36.0-47.0); Hemoglobin 12.6 g/dL (12.0-16.0); Mean Corpuscular Hemoglobin 27.6 pg (27.0-31.0); Mean Corpuscular Volume 84.2 fL (78.0-98.0); Platelet Count 350 10x3/uL (130-400); Red Blood Cell (RBC) Count 4.57 mill/uL (4.20-5.40); White Blood Cell (WBC) Count 10.50 10x3/uL (4.8-10.8)
[2025-06-04 23:37] LABS: ALT (SGPT) 31 U/L (Less than 34); AST (SGOT) 22 U/L (11-34); Albumin 3.6 g/dL (3.1-4.5); Alkaline Phosphatase 84 U/L (40-110); Anion Gap 14 mmol/L (10-20); BUN (Urea Nitrogen) 7 mg/dL (7.0-18.7); Bilirubin, Total 0.2 mg/dL (0.3-1.2); Calc. Creatinine Clearance 0 mL/min (70-130); Calcium 9.3 mg/dL (7.8-10.44); Carbon Dioxide 24 mmol/L (22-29); Chloride 105 mmol/L (98-107); Globulin 4.1 g/dL (2.4-3.5); Glucose 270 mg/dL (70-105); Lipase 18 U/L (8-78); Magnesium 1.8 mg/dL (1.6-2.6); Potassium 3.8 mmol/L (3.5-5.1); Sodium 139 mmol/L (136-145)
[2025-06-04 23:39] LABS: INR-International Normal Ratio 1.1; PTT 26.7 sec (22.9-36.1); Prothrombin Time 14.0 sec (12.0-14.7)
[2025-06-04 23:40] LABS: BHCG - Serum Negative (NEGATIVE); Pregs Control Background? CLEAR/WHITE (CLR/WHITE); Pregs Control Bar Appear? YES (CONTROL BAR)
== END 2025-06-05 02:48 | disposition home or self-care (01) ==
LOC: ERS 22:26
DX: R07.81 Pleurodynia (principal); E11.9 Type 2 diabetes mellitus without complications; I10 Essential (primary) hypertension; F17.210 Nicotine dependence, cigarettes, uncomplicated; Z79.84 Long term (current) use of oral hypoglycemic drugs
CPT/HCPCS: 71045; 71275; 80053; 83690; 83735; 83880; 84484; 84703; 85025; 85610; 85730; 93005; 96374; 96375; J2270